=== PATIENT | male | born 2000 | race Caucasian/White ===

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

== ENCOUNTER → 2020-06-24 | Outpatient (CLI) | payer OTHER ==
[~2020-06-24] MED LIST changes: +RANI-244 PO; -RANI75TA12 PO
== END | disposition home or self-care (01) ==
LOC: STAR 14:17
PROVIDERS: ATTEND Surgery
DX: Z01.818 Encounter for other preprocedural examination (principal); Z11.59 Encounter for screening for other viral diseases
CPT/HCPCS: 36415; 87635

== ENCOUNTER 2021-03-29 06:37 | Observation (INO) | payer OTHER ==
[~2021-03-29] VITALS: Ht 185.4 cm; Wt 89.0 kg
[~2021-03-29 06:37] MED LIST changes: +NONE PER PT; +OMEP20TA62 PO
[2021-03-29] MEDS ORDERED: BUPIVACAINE/PF 0.5% ONE (07:01)
[2021-03-29] MEDS ORDERED: CHLORHEXIDINE 15 ML UDC PO ONE (07:30)
[2021-03-29] MEDS: LACTATED RINGERS 1,000 ML IV SCH ×2 (07:50→14:46)
[2021-03-29] MEDS ORDERED: FENTANYL PF 250 MCG/5ML ONE (09:17)
[2021-03-29] MEDS ORDERED: MIDAZOLAM 1 MG/ML, 2ML ONE (09:17)
[2021-03-29] MEDS ORDERED: CEFAZOLIN 1,000 MG ONE (09:26)
[2021-03-29] MEDS ORDERED: DEXAMETHASONE 4 MG/ML, 1ML ONE (09:26)
[2021-03-29] MEDS ORDERED: KETOROLAC 30 MG/1 ML ONE (09:26)
[2021-03-29] MEDS ORDERED: LIDOCAINE-MPF 2% ,5ML ONE (09:26)
[2021-03-29] MEDS ORDERED: ONDANSETRON 2MG/ML, 2ML ONE (09:26)
[2021-03-29] MEDS ORDERED: PROPOFOL 10 MG/ML, 20ML ONE (09:26)
[2021-03-29] MEDS ORDERED: SUCCINYLCHOLINE 20 MG/ML, 10ML ONE (09:26)
[2021-03-29] MEDS ORDERED: MEPERIDINE/PF 50 MG/ML ONE (09:39)
[2021-03-29] MEDS ORDERED: EPINEPHRINE 1 MG/ML, 1ML INFIL ONE (09:51)
[2021-03-29] MEDS ORDERED: HALOPERIDOL 5 MG/ML IV PRN (10:00)
[2021-03-29] MEDS ORDERED: OXYcodone 5 MG/5 ML ORAL.SOL UDC PO PRN (10:00)
[2021-03-29] MEDS ORDERED: FENTANYL PF 100 MCG/2ML IV PRN (10:00)
[2021-03-29] MEDS ORDERED: ACETAMINOPHEN 325 MG TABLET PO PRN (10:00)
[2021-03-29] MEDS ORDERED: LABETALOL 5MG/ML, 20ML IV PRN (10:00)
[2021-03-29] MEDS ORDERED: LORazepam 2 MG/ML, 1ML IVPush PRN ×2 (10:00→10:30)
[2021-03-29] MEDS ORDERED: PROMETHAZINE 25 MG/ML, 1ML IVPush PRN (10:00)
[2021-03-29] MEDS ORDERED: MEPERIDINE/PF 25MG/0.5ML IVPush PRN (10:00)
[2021-03-29] MEDS ORDERED: hydrALAzine 20 MG/ML, 1ML IV PRN (10:00)
[2021-03-29] MEDS ORDERED: ONDANSETRON 2MG/ML, 2ML IVPush PRN ×2 (10:00→10:30)
[2021-03-29] MEDS ORDERED: HYDROmorphone 1 MG/ML, 1ML INJ IVPush PRN ×2 (10:00→10:30)
[2021-03-29] MEDS ORDERED: METHOCARBAMOL 1,000 MG in DEXTROSE 5% 100 ML IV PRN (10:00)
[2021-03-29] MEDS ORDERED: DIPHENHYDRAMINE 25 MG CAPSULE PO PRN (10:30)
[2021-03-29] MEDS ORDERED: DIPHENHYDRAMINE 50 MG/ML, 1ML IVPush PRN (10:30)
[2021-03-29] MEDS ORDERED: OXYcodone IR 5MG TABLET PO PRN (10:30)
[2021-03-29] MEDS ORDERED: CALCIUM CARBONATE 500 MG TAB.CHEW PO PRN (10:30)
[2021-03-29] MEDS ORDERED: TRAZODONE 50MG TABLET PO PRN (10:30)
[2021-03-29] MEDS ORDERED: HALOPERIDOL 5 MG/ML IVPush PRN (10:30)
[2021-03-29] MEDS ORDERED: LORazepam 1MG TABLET PO PRN (10:30)
[2021-03-29] MEDS ORDERED: OXYcodone 5 MG/5 ML ORAL.SOL UDC ONE (10:47)
[2021-03-29] MEDS ORDERED: FENTANYL PF 100 MCG/2ML ONE (10:47)
[2021-03-29 11:55] VITALS: BP 109/74
[2021-03-29] MEDS: SODIUM CHLORIDE FLUSH 10ML SYR IVF SCH ×2 (11:55→22:43)
[2021-03-29] MEDS ORDERED: DEXAMETHASONE 4 MG/ML, 1ML IVPush PRN (12:30)
[2021-03-29 13:09] VITALS: BP 108/72
[2021-03-29] MEDS: ACETAMINOPHEN 100 ML IVPB SCH ×2 (16:10→22:43)
[2021-03-29] MEDS: CLINDAMYCIN PMX 900MG/50ML 50 ML IVPB SCH (17:06)
[2021-03-29 21:21] VITALS: BP 111/74
[2021-03-30 01:09] VITALS: BP 102/57
[2021-03-30] MEDS: CLINDAMYCIN PMX 900MG/50ML 50 ML IVPB SCH ×3 (01:29→17:41)
[2021-03-30 02:51] LABS: BASOPHILS % (AUTO) 0 % (0-1); EOSINOPHILS % (AUTO) 0 % (1-7); LYMPHOCYTES % (AUTO) 12 % (22-44); MD NO; MEAN CORPUSCULAR HEMOGLOBIN 30.3 pg (27.5-34.5); MEAN CORPUSCULAR HGB CONC 33.8 g/dL (33.2-36.2); MEAN PLATELET VOLUME 8.2 fL (7.4-10.4); MONOCYTES % (AUTO) 9 % (2-9); NEUTROPHILS % (AUTO) 78 % (42-75); PLATELET COUNT 297 x10^3/uL (130-400); RED BLOOD COUNT 4.66 x10^6/uL (4.38-5.82); RED CELL DISTRIBUTION WIDTH 13.1 % (9.4-14.8)
[2021-03-30 03:01] LABS: ALBUMIN 3.3 g/dL (3.4-5.0); ANION GAP 4 mmol/L (5-15); CALCIUM 8.4 mg/dL (8.5-10.1); CHLORIDE 107 mmol/L (98-107); CREATININE 0.91 mg/dL (0.7-1.3)
[2021-03-30] MEDS: ACETAMINOPHEN 100 ML IVPB SCH ×2 (04:42→11:01)
[2021-03-30 05:26] VITALS: BP 101/68
[2021-03-30 07:34] VITALS: BP 99/55
[2021-03-30] MEDS ORDERED: ENOXAPARIN 40 MG/0.4 ML SQ SCH (09:00)
[2021-03-30] MEDS: SODIUM CHLORIDE FLUSH 10ML SYR IVF SCH (09:00)
[2021-03-30] MEDS ORDERED: CALCIUM CARBONATE 500 MG TAB.CHEW PO PRN (11:30)
[2021-03-30 12:28] VITALS: BP 104/62
[2021-03-30] MEDS ORDERED: OXYC1TAB14 PO (12:48)
[2021-03-30] MEDS ORDERED: SULF1TAB23 PO (12:56)
== END 2021-03-30 18:40 | disposition home or self-care (01) ==
LOC: OUT 06:37 → 4NE 11:40 → OBSVTOIN 03-30 00:01 → INTOOBSV 03-30 00:01 → OUT 03-30 00:01
PROVIDERS: ADMIT Surgery; ATTEND Surgery
DX: L05.01 Pilonidal cyst with abscess (principal); Z20.822 Contact with and (suspected) exposure to COVID-19; F17.210 Nicotine dependence, cigarettes, uncomplicated; Z88.0 Allergy status to penicillin; Z79.899 Other long term (current) drug therapy
CPT/HCPCS: 11772; 36415; 80048; 82040; 85025; 88304; 96365; 96366; 96372; 96375; 96376; G0378; J0131; J0171; J0330; J0690; J1100; J1650; J1885; J2175; J2250; J2405; J2704; J3010; J3490; J7120; S0020; U0003; U0005

== ENCOUNTER → 2021-04-05 | Outpatient (CLI) | payer OTHER ==
[~2021-04-05] MED LIST changes: +OXYC1TAB14 PO; +SULF1TAB23 PO
== END | disposition home or self-care (01) ==
LOC: WOUND 13:56
PROVIDERS: ATTEND Internal Medicine
DX: T81.31XA Disruption of external operation (surgical) wound, not elsewhere classified, initial encounter (principal); L05.01 Pilonidal cyst with abscess; F17.200 Nicotine dependence, unspecified, uncomplicated; Z79.899 Other long term (current) drug therapy; Z88.0 Allergy status to penicillin; Y83.8 Other surgical procedures as the cause of abnormal reaction of the patient, or of later complication, without mention of misadventure at the time of the procedure; Y92.238 Other place in hospital as the place of occurrence of the external cause
CPT/HCPCS: 97606; 99215

== ENCOUNTER → 2021-04-07 | Outpatient (CLI) | payer OTHER | END | disposition home or self-care (01) | LOC: WOUND 14:18 | PROVIDERS: ATTEND Internal Medicine | DX: T81.31XD Disruption of external operation (surgical) wound, not elsewhere classified, subsequent encounter (principal); L05.01 Pilonidal cyst with abscess; F17.200 Nicotine dependence, unspecified, uncomplicated; Z79.899 Other long term (current) drug therapy; Z88.0 Allergy status to penicillin; Y83.8 Other surgical procedures as the cause of abnormal reaction of the patient, or of later complication, without mention of misadventure at the time of the procedure | CPT/HCPCS: 97606 ==

== ENCOUNTER → 2021-04-10 | Outpatient (CLI) | payer OTHER | END | disposition home or self-care (01) | LOC: WOUND 14:30 | PROVIDERS: ATTEND Internal Medicine | DX: T81.31XD Disruption of external operation (surgical) wound, not elsewhere classified, subsequent encounter (principal); L05.01 Pilonidal cyst with abscess; F17.200 Nicotine dependence, unspecified, uncomplicated; Z79.899 Other long term (current) drug therapy; Z88.0 Allergy status to penicillin; Y83.8 Other surgical procedures as the cause of abnormal reaction of the patient, or of later complication, without mention of misadventure at the time of the procedure | CPT/HCPCS: 97606 ==

== ENCOUNTER → 2021-04-12 | Outpatient (CLI) | payer OTHER | END | disposition home or self-care (01) | LOC: WOUND 08:05 | PROVIDERS: ATTEND Internal Medicine | DX: T81.31XD Disruption of external operation (surgical) wound, not elsewhere classified, subsequent encounter (principal); L05.01 Pilonidal cyst with abscess; F17.210 Nicotine dependence, cigarettes, uncomplicated; Z20.822 Contact with and (suspected) exposure to COVID-19; Z88.0 Allergy status to penicillin; Z79.899 Other long term (current) drug therapy; Y83.8 Other surgical procedures as the cause of abnormal reaction of the patient, or of later complication, without mention of misadventure at the time of the procedure | CPT/HCPCS: 97597; 97598 ==

== ENCOUNTER → 2021-04-19 | Outpatient (CLI) | payer OTHER | END | disposition home or self-care (01) | LOC: WOUND 12:55 | PROVIDERS: ATTEND Internal Medicine Cardiovascular Disease | DX: T81.31XD Disruption of external operation (surgical) wound, not elsewhere classified, subsequent encounter (principal); L05.01 Pilonidal cyst with abscess; F17.210 Nicotine dependence, cigarettes, uncomplicated; Z20.822 Contact with and (suspected) exposure to COVID-19; Z88.0 Allergy status to penicillin; Z79.899 Other long term (current) drug therapy; Y83.8 Other surgical procedures as the cause of abnormal reaction of the patient, or of later complication, without mention of misadventure at the time of the procedure | CPT/HCPCS: 97606 ==

== ENCOUNTER → 2021-04-21 | Outpatient (CLI) | payer OTHER | END | disposition home or self-care (01) | LOC: WOUND 08:01 | PROVIDERS: ATTEND Internal Medicine | DX: T81.31XD Disruption of external operation (surgical) wound, not elsewhere classified, subsequent encounter (principal); L05.01 Pilonidal cyst with abscess; F17.200 Nicotine dependence, unspecified, uncomplicated; Z79.899 Other long term (current) drug therapy; Y83.8 Other surgical procedures as the cause of abnormal reaction of the patient, or of later complication, without mention of misadventure at the time of the procedure | CPT/HCPCS: 97597; 97598 ==

== ENCOUNTER → 2021-04-24 | Outpatient (CLI) | payer OTHER | END | disposition home or self-care (01) | LOC: WOUND 13:01 | PROVIDERS: ATTEND Internal Medicine | DX: T81.31XD Disruption of external operation (surgical) wound, not elsewhere classified, subsequent encounter (principal); L05.01 Pilonidal cyst with abscess; F17.200 Nicotine dependence, unspecified, uncomplicated; Z79.899 Other long term (current) drug therapy; Z20.822 Contact with and (suspected) exposure to COVID-19; Z88.0 Allergy status to penicillin; Y83.8 Other surgical procedures as the cause of abnormal reaction of the patient, or of later complication, without mention of misadventure at the time of the procedure | CPT/HCPCS: 99213 ==

== ENCOUNTER → 2021-04-26 | Outpatient (CLI) | payer OTHER | END | disposition home or self-care (01) | LOC: WOUND 08:17 | PROVIDERS: ATTEND Internal Medicine | DX: T81.31XD Disruption of external operation (surgical) wound, not elsewhere classified, subsequent encounter (principal); L05.01 Pilonidal cyst with abscess; F17.210 Nicotine dependence, cigarettes, uncomplicated; Z79.899 Other long term (current) drug therapy; Z20.822 Contact with and (suspected) exposure to COVID-19; Z88.0 Allergy status to penicillin; Y83.8 Other surgical procedures as the cause of abnormal reaction of the patient, or of later complication, without mention of misadventure at the time of the procedure | CPT/HCPCS: 99213 ==

== ENCOUNTER 2021-04-28 08:09 | Outpatient (CLI) | payer OTHER | END 2021-04-28 23:59 | disposition home or self-care (01) | LOC: WOUND 08:09 | PROVIDERS: ATTEND Internal Medicine | DX: T81.31XD Disruption of external operation (surgical) wound, not elsewhere classified, subsequent encounter (principal); L05.01 Pilonidal cyst with abscess; F17.200 Nicotine dependence, unspecified, uncomplicated; Y83.8 Other surgical procedures as the cause of abnormal reaction of the patient, or of later complication, without mention of misadventure at the time of the procedure | CPT/HCPCS: 97597; 97598 ==

== ENCOUNTER 2021-05-01 14:28 | Outpatient (CLI) | payer OTHER ==
[~2021-05-01 14:28] MED LIST changes: +OXYC1TAB12 PO; -OXYC1TAB14 PO
== END 2021-05-01 23:59 | disposition home or self-care (01) ==
LOC: WOUND 14:28
PROVIDERS: ATTEND Internal Medicine
DX: T81.31XD Disruption of external operation (surgical) wound, not elsewhere classified, subsequent encounter (principal); F17.210 Nicotine dependence, cigarettes, uncomplicated; L05.01 Pilonidal cyst with abscess; Z79.899 Other long term (current) drug therapy; Z20.822 Contact with and (suspected) exposure to COVID-19; Z88.0 Allergy status to penicillin; Y83.8 Other surgical procedures as the cause of abnormal reaction of the patient, or of later complication, without mention of misadventure at the time of the procedure
CPT/HCPCS: 97605

== ENCOUNTER 2021-05-03 12:38 | Outpatient (CLI) | payer OTHER ==
[~2021-05-03 12:38] MED LIST changes: -OXYC1TAB12 PO; +OXYC1TAB14 PO
== END 2021-05-03 23:59 | disposition home or self-care (01) ==
LOC: WOUND 12:38
PROVIDERS: ATTEND Internal Medicine
DX: T81.31XD Disruption of external operation (surgical) wound, not elsewhere classified, subsequent encounter (principal); L05.01 Pilonidal cyst with abscess; F17.210 Nicotine dependence, cigarettes, uncomplicated; Z79.899 Other long term (current) drug therapy; Z20.822 Contact with and (suspected) exposure to COVID-19; Z88.0 Allergy status to penicillin; Y83.8 Other surgical procedures as the cause of abnormal reaction of the patient, or of later complication, without mention of misadventure at the time of the procedure
CPT/HCPCS: 97597; 97598

== ENCOUNTER → 2021-05-05 | Outpatient (CLI) | payer OTHER | END | disposition home or self-care (01) | LOC: WOUND 08:39 | PROVIDERS: ATTEND Internal Medicine | DX: T81.31XD Disruption of external operation (surgical) wound, not elsewhere classified, subsequent encounter (principal); L05.01 Pilonidal cyst with abscess; F17.210 Nicotine dependence, cigarettes, uncomplicated; Z79.899 Other long term (current) drug therapy; Z20.822 Contact with and (suspected) exposure to COVID-19; Z88.0 Allergy status to penicillin; Y83.8 Other surgical procedures as the cause of abnormal reaction of the patient, or of later complication, without mention of misadventure at the time of the procedure | CPT/HCPCS: 97605 ==

== ENCOUNTER → 2021-05-09 | Outpatient (CLI) | payer OTHER | END | disposition home or self-care (01) | LOC: WOUND 11:06 | PROVIDERS: ATTEND Nurse Practitioner Family | DX: T81.31XD Disruption of external operation (surgical) wound, not elsewhere classified, subsequent encounter (principal); L05.01 Pilonidal cyst with abscess; F17.210 Nicotine dependence, cigarettes, uncomplicated; Z79.899 Other long term (current) drug therapy; Z20.822 Contact with and (suspected) exposure to COVID-19; Z88.0 Allergy status to penicillin; Y83.8 Other surgical procedures as the cause of abnormal reaction of the patient, or of later complication, without mention of misadventure at the time of the procedure | CPT/HCPCS: 99212 ==

== ENCOUNTER 2021-05-12 11:01 | Outpatient (CLI) | payer OTHER ==
[~2021-05-12 11:01] MED LIST changes: +OXYC1TAB12 PO; -OXYC1TAB14 PO
== END 2021-05-12 23:59 | disposition home or self-care (01) ==
LOC: WOUND 11:01
PROVIDERS: ATTEND Internal Medicine
DX: T81.31XD Disruption of external operation (surgical) wound, not elsewhere classified, subsequent encounter (principal); L05.01 Pilonidal cyst with abscess; F17.210 Nicotine dependence, cigarettes, uncomplicated; Z79.899 Other long term (current) drug therapy; Z20.822 Contact with and (suspected) exposure to COVID-19; Z88.0 Allergy status to penicillin; Y83.8 Other surgical procedures as the cause of abnormal reaction of the patient, or of later complication, without mention of misadventure at the time of the procedure
CPT/HCPCS: 97597; 97598

== ENCOUNTER 2021-05-19 11:02 | Outpatient (CLI) | payer OTHER | END 2021-05-19 23:59 | disposition home or self-care (01) | LOC: WOUND 11:02 | PROVIDERS: ATTEND Internal Medicine | DX: T81.31XD Disruption of external operation (surgical) wound, not elsewhere classified, subsequent encounter (principal); L05.01 Pilonidal cyst with abscess; F17.210 Nicotine dependence, cigarettes, uncomplicated; Z79.899 Other long term (current) drug therapy; Z20.822 Contact with and (suspected) exposure to COVID-19; Z88.0 Allergy status to penicillin; Y83.8 Other surgical procedures as the cause of abnormal reaction of the patient, or of later complication, without mention of misadventure at the time of the procedure | CPT/HCPCS: 97597 ==

== ENCOUNTER → 2021-05-26 | Outpatient (CLI) | payer OTHER ==
[~2021-05-26] MED LIST changes: -OXYC1TAB12 PO; +OXYC1TAB14 PO
== END | disposition home or self-care (01) ==
LOC: WOUND 10:02
PROVIDERS: ATTEND Internal Medicine
DX: T81.31XD Disruption of external operation (surgical) wound, not elsewhere classified, subsequent encounter (principal); L05.01 Pilonidal cyst with abscess; F17.210 Nicotine dependence, cigarettes, uncomplicated; Z79.899 Other long term (current) drug therapy; Z20.822 Contact with and (suspected) exposure to COVID-19; Z88.0 Allergy status to penicillin; Y83.8 Other surgical procedures as the cause of abnormal reaction of the patient, or of later complication, without mention of misadventure at the time of the procedure
CPT/HCPCS: 97597

== ENCOUNTER → 2021-06-02 | Outpatient (CLI) | payer OTHER | END | disposition home or self-care (01) | LOC: WOUND 08:04 | PROVIDERS: ATTEND Internal Medicine | DX: T81.31XD Disruption of external operation (surgical) wound, not elsewhere classified, subsequent encounter (principal); L05.01 Pilonidal cyst with abscess; F17.210 Nicotine dependence, cigarettes, uncomplicated; Z79.899 Other long term (current) drug therapy; Z20.822 Contact with and (suspected) exposure to COVID-19; Z88.0 Allergy status to penicillin; Y83.8 Other surgical procedures as the cause of abnormal reaction of the patient, or of later complication, without mention of misadventure at the time of the procedure | CPT/HCPCS: 97597 ==

== ENCOUNTER 2021-06-09 10:41 | Outpatient (CLI) | payer OTHER | END 2021-06-09 23:59 | disposition home or self-care (01) | LOC: WOUND 10:41 | PROVIDERS: ATTEND Internal Medicine | DX: T81.31XD Disruption of external operation (surgical) wound, not elsewhere classified, subsequent encounter (principal); L05.01 Pilonidal cyst with abscess; F17.210 Nicotine dependence, cigarettes, uncomplicated; Z79.899 Other long term (current) drug therapy; Z20.822 Contact with and (suspected) exposure to COVID-19; Z88.0 Allergy status to penicillin; Y83.8 Other surgical procedures as the cause of abnormal reaction of the patient, or of later complication, without mention of misadventure at the time of the procedure | CPT/HCPCS: 97597 ==

== ENCOUNTER → 2021-06-12 | Outpatient (CLI) | payer OTHER | END | disposition home or self-care (01) | LOC: WOUND 14:58 | PROVIDERS: ATTEND Internal Medicine | DX: T81.31XD Disruption of external operation (surgical) wound, not elsewhere classified, subsequent encounter (principal); L05.01 Pilonidal cyst with abscess; F17.210 Nicotine dependence, cigarettes, uncomplicated; Z79.899 Other long term (current) drug therapy; Z20.822 Contact with and (suspected) exposure to COVID-19; Z88.0 Allergy status to penicillin; Y83.8 Other surgical procedures as the cause of abnormal reaction of the patient, or of later complication, without mention of misadventure at the time of the procedure | CPT/HCPCS: 97597 ==

== ENCOUNTER → 2021-06-21 | Outpatient (CLI) | payer OTHER | END | disposition home or self-care (01) | LOC: WOUND 11:00 | PROVIDERS: ATTEND Internal Medicine | DX: T81.31XD Disruption of external operation (surgical) wound, not elsewhere classified, subsequent encounter (principal); L05.01 Pilonidal cyst with abscess; F17.210 Nicotine dependence, cigarettes, uncomplicated; Z79.899 Other long term (current) drug therapy; Z20.822 Contact with and (suspected) exposure to COVID-19; Z88.0 Allergy status to penicillin; Y83.8 Other surgical procedures as the cause of abnormal reaction of the patient, or of later complication, without mention of misadventure at the time of the procedure | CPT/HCPCS: 97597 ==

== ENCOUNTER → 2021-07-05 | Outpatient (CLI) | payer OTHER ==
[~2021-07-05] MED LIST changes: +OXYC1TAB12 PO; -OXYC1TAB14 PO
== END | disposition home or self-care (01) ==
LOC: WOUND 08:00
PROVIDERS: ATTEND Internal Medicine
DX: T81.31XD Disruption of external operation (surgical) wound, not elsewhere classified, subsequent encounter (principal); L05.01 Pilonidal cyst with abscess; F17.210 Nicotine dependence, cigarettes, uncomplicated; Z79.899 Other long term (current) drug therapy; Z20.822 Contact with and (suspected) exposure to COVID-19; Z88.0 Allergy status to penicillin; Y83.8 Other surgical procedures as the cause of abnormal reaction of the patient, or of later complication, without mention of misadventure at the time of the procedure
CPT/HCPCS: 97597